=== PATIENT | female | born 1965 | race Two or more races ===

== ENCOUNTER 2018-02-25 05:00 | Emergency (ER) | payer SELFPAY ==
[~2018-02-25] VITALS: Ht 147.3 cm; Wt 56.7 kg
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
[2018-02-25 05:40] LABS: *URINE HCG, QUAL NEGATIVE (NEGATIVE)
--- NOTE | 2018-02-25 07:10 | NUR ---
SHIFT REPORT GIVEN TO RADHA MIRELES.
--- NOTE | 2018-02-25 07:10 | NUR ---
Pt awake, alert, oriented x3. No sob noted. No s/sx of distress noted. Resp even and unlabored. Anxious. Plan of care discussed with patient. Food and water provided. Will cont to monitor.
--- NOTE | 2018-02-25 07:25 | NUR ---
[employer] at bedside. Officer Jaxson with another officer, talking to patient.
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
--- NOTE | 2018-02-25 08:41 | NUR ---
SW called and will see the patient.
--- NOTE | 2018-02-25 08:55 | NUR ---
Pt awake, alert, oriented x3. no sob noted. No s/sx of distress noted. Resp even and unlabored. Pt is resting with eyes open. Will cont to monitor.
--- NOTE | 2018-02-25 09:51 | NUR ---
Patient discharged to home in stable conditon. Written and verbal after care instructions given. Patient verbalizes understanding of instructions. Addendum: 02/25/18 at 0953 by LIZBET Friend will pick patient up.
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
== END 2018-02-25 10:06 | disposition home or self-care (01) ==
LOC: ER 05:07
DX: S09.90XA Unspecified injury of head, initial encounter (principal); W22.8XXA Striking against or struck by other objects, initial encounter; Y93.89 Activity, other specified; Y92.89 Other specified places as the place of occurrence of the external cause; Y99.8 Other external cause status
CPT/HCPCS: 84703; 93005; 99285; A4663